=== PATIENT | female | born 1990 | race African-American/Black ===

== ENCOUNTER 2024-04-19 22:25 | Emergency (ER) | payer SELFPAY ==
[~2024-04-19] VITALS: Ht 172.7 cm; Wt 84.0 kg
[~2024-04-19 22:25] MED LIST: IBUP-2028 MT; TOPUD PO
[2024-04-19 22:43] VITALS: BP 136/90; PULSE 100; RESP 16; O2SAT 98
[2024-04-19] MEDS: ACETAMINOPHEN 325MG TABLET PO ONE (23:00)
[2024-04-20] MEDS ORDERED: ACET-2708 MT (01:39)
[2024-04-20 02:25] VITALS: TEMP 98.9
[2024-04-20] MEDS: ACETAMINOPHEN 325MG TABLET PO NR (02:25)
== END 2024-04-20 02:28 | disposition home or self-care (01) ==
LOC: ER 22:25
DX: S83.92XA Sprain of unspecified site of left knee, initial encounter (principal); I25.2 Old myocardial infarction; X58.XXXA Exposure to other specified factors, initial encounter; Y93.89 Activity, other specified; Y92.89 Other specified places as the place of occurrence of the external cause; Y99.8 Other external cause status
CPT/HCPCS: 73560; 99283; Z7610; L1830